=== PATIENT | male | born 1950 | race Caucasian/White ===

== ENCOUNTER → 2017-03-20 | Outpatient (CLI) | payer MEDICARE | END | disposition home or self-care (01) | LOC: CFH 07:51 | PROVIDERS: ATTEND Nurse Practitioner Primary Care | DX: Z12.11 Encounter for screening for malignant neoplasm of colon (principal); Z13.220 Encounter for screening for lipoid disorders; Z12.5 Encounter for screening for malignant neoplasm of prostate; M19.011 Primary osteoarthritis, right shoulder; M16.11 Unilateral primary osteoarthritis, right hip; R53.83 Other fatigue; M47.896 Other spondylosis, lumbar region ==